=== PATIENT | male | born 1985 | race American Indian/Alaskan Native ===

== ENCOUNTER 2017-06-12 09:14 | Emergency (ER) | payer MEDICAID ==
[2017-06-12 09:15] VITALS: BMI 28.1
--- NOTE | 2017-06-12 09:36 | ED PDOC ---
Arrival/HPI - General Chief Complaint: Upper Extremity Problem/Injury Time Seen by Provider: 06/12/17 09:21 Historian: Patient - History of Present Illness Narrative History of Present Illness (Text): 06/12/17 09:35 32-year-old male status post injury 4 days ago. Patient states that he hit his hand into a door that was closing on him. Patient is complaining of pain to the dorsal aspect of the hand and complaining of swelling. Patient denies numbness weakness or tingling in the extremity. Patient states he last took Motrin 3 days ago for pain. Patient denies wrist pain. No other complaints. Past Medical History - Provider Review Nursing Documentation Reviewed: Yes - Travel History Have you recently traveled outside [place] w/in the past 3 mons?: No - Infectious Disease Hx of Infectious Diseases: None - Cardiac Hx Cardiac Disorders: No - Pulmonary Hx Asthma: Yes - Neurological Hx Neurological Disorder: No - HEENT Hx HEENT Disorder: No - Renal Hx Renal Disorder: No - Endocrine/Metabolic Hx Endocrine Disorders: No - Hematological/Oncological Hx Blood Disorders: No - Integumentary Hx Dermatological Disorder: No - Musculoskeletal/Rheumatological Hx Musculoskeletal Disorders: No - Gastrointestinal Hx Gastrointestinal Disorders: No - Genitourinary/Gynecological Hx Genitourinary Disorders: No - Psychiatric Hx Psychophysiologic Disorder: No Hx Substance Use: No - Surgical History Hx Appendectomy: Yes - Anesthesia Hx Anesthesia: Yes Hx Anesthesia Reactions: No Hx Malignant Hyperthermia: No Family/Social History - Physician Review Nursing Documentation Reviewed: Yes Family/Social History: Unknown Family HX Smoking Status: Light Smoker < 10 Cigarettes Daily Hx Alcohol Use: Yes Hx Substance Use: No Allergies/Home Meds Allergies/Adverse Reactions: Allergies shellfish derived Allergy (Verified 06/12/17 09:33) SHORTNESS OF BREATH seafood Allergy (Uncoded 06/12/17 09:33) RASH Home Medications: Home Meds Medication Instructions Recorded Confirmed Albuterol HFA [Ventolin HFA 90 0.09 mg IH PRN PRN 12/25/14 06/12/17 mcg/actuation (8 g)] Review of Systems - Review of Systems Constitutional: absent: Fatigue, Fevers Respiratory: absent: SOB, Cough Cardiovascular: absent: Chest Pain, Palpitations Gastrointestinal: absent: Abdominal Pain, Nausea, Vomiting Genitourinary Male: absent: Dysuria Musculoskeletal: Arthralgias Skin: absent: Rash, Pruritis Neurological: absent: Headache, Dizziness Physical Exam Vital Signs Reviewed: Yes Vital Signs Temp Pulse Resp BP Pulse Ox 06/12/17 09:26 98.8 F 85 20 126/74 98 Temperature: Afebrile Blood Pressure: Normal Pulse: Regular Respiratory Rate: Normal Appearance: Positive for: Well-Appearing, Non-Toxic, Comfortable Pain Distress: None Mental Status: Positive for: Alert and Oriented X 3 - Systems Exam Head: Present: Atraumatic Mouth: Present: Moist Mucous Membranes Neck: Present: Normal Range of Motion Respiratory/Chest: Present: Clear to Auscultation, Good Air Exchange. No: Respiratory Distress, Accessory Muscle Use Cardiovascular: Present: Regular Rate and Rhythm, Normal S1, S2. No: Murmurs Upper Extremity: Present: Normal ROM, NORMAL PULSES, Tenderness (right hand; + ttp and edema noted along the dorsal aspect of the hand; with tenderness over the 3rd 4th and 5th metacarpals. ), Swelling, Neurovascularly Intact, Capillary Refill < 2s. No: Erythema, Deformity Neurological: Present: GCS=15, Speech Normal, Motor Func Grossly Intact, Normal Sensory Function Skin: Present: Warm, Dry, Normal Color. No: Rashes Psychiatric: Present: Alert, Oriented x 3 Medical Decision Making ED Course and Treatment: 06/12/17 10:16 Patient nontoxic well-appearing in no distress with stable vital signs X-rays of the right hand; FINDINGS: BONES: There is acute nondisplaced fracture at the base of the 4th metacarpal bone. JOINTS: Normal. No osteoarthritic changes. SOFT TISSUES: Normal. OTHER FINDINGS: None. IMPRESSION: Acute nondisplaced fracture at the base of the 4th metacarpal bone motrin po Patient placed in ulnar gutter splint I discussed all results with patient advised to followup with the orthopedist for the next 2 days. Return if symptoms worsen persist or new symptoms develop Patient verbalizes understanding of discharge instructions and need for immediate followup. all aspects of this case were discussed the attending of record. Impression: fracture, metacarpal Motrin every 6 hours as needed for pain Rest, ice, compression, elevation Followup with the orthopedist within the next 2 days Followup with primary care physician within the next 2 days Return if any other concerning symptoms develop - RAD Interpretation Radiology Orders: 06/12/17 09:34 HAND RIGHT 3 VIEWS [RAD] Stat - Medication Orders Current Medication Orders: Discontinued Medications Ibuprofen (Motrin Tab) 600 mg PO STAT STA Stop: 06/12/17 09:35 Last Admin: 06/12/17 09:55 Dose: 600 mg MAR Pain/Vitals Document 06/12/17 09:55 GMI (Rec: 06/12/17 09:[address] [facility] [email or web address]) Pain Reassessment Is This A Pain ReAssessment? Yes Procedures - Splinting Location: right hand Hand-Made Type: fiberglass Splint: ulnar (ulnar gutter) Pre-Proc Neuro Vasc Exam: normal Post-Proc Neuro Vasc Exam: normal Disposition/Present on Arrival - Present on Arrival Any Indicators Present on Arrival: No History of DVT/PE: No History of Uncontrolled Diabetes: No Urinary Catheter: No History of Decub. Ulcer: No History Surgical Site Infection Following: None - Disposition Have Diagnosis and Disposition been Completed?: Yes Diagnosis: Fracture, metacarpal Disposition: HOME/ ROUTINE Disposition Time: 10:32 Patient Plan: Discharge Condition: GOOD Discharge Instructions (ExitCare): Hand Fracture (DC) Additional Instructions: Motrin every 6 hours as needed for pain Rest, ice, compression, elevation Followup with the orthopedist within the next 2 days Followup with primary care physician within the next 2 days Return if any other concerning symptoms develop Prescriptions: Ibuprofen [Motrin] 600 mg PO Q6H PRN #20 tab PRN Reason: pain/fever reduction Referrals: Kin Schafer DO [Staff Provider] - Follow up with primary Shady Ferreira DPM [[facility]] - Follow up with primary Rafa Chin MD [Staff Provider] - Follow up with primary Forms: [employer] (Maltese), WORK NOTE
--- NOTE | 2017-06-12 10:21 | RAD ---
PROCEDURE: Right Hand Radiographs. HISTORY: door hit pain, pain to dorsal 3rd-5th metacarpals COMPARISON: None. FINDINGS: BONES: There is acute nondisplaced fracture at the base of the 4th metacarpal bone. JOINTS: Normal. No osteoarthritic changes. SOFT TISSUES: Normal. OTHER FINDINGS: None. IMPRESSION: Acute nondisplaced fracture at the base of the 4th metacarpal bone
[2017-06-12 11:25] VITALS: BP 121/82; PULSE 75; RESP 19; TEMP 98.4; O2SAT 99
== END 2017-06-12 11:00 | disposition home or self-care (01) ==
LOC: ED 09:14
DX: S62.344A Nondisplaced fracture of base of fourth metacarpal bone, right hand, initial encounter for closed fracture (principal); W22.8XXA Striking against or struck by other objects, initial encounter; Y92.89 Other specified places as the place of occurrence of the external cause